=== PATIENT | male | born 1940 | race Caucasian/White ===

== ENCOUNTER 2023-02-21 11:57 | Outpatient (CLI) | payer MEDICARE, OTHER, SELFPAY ==
--- NOTE | ~2023-02-21 | PE_ITS ---
EXAMINATION: PET_PETPSMAST_PT DATE: 02/22/2023 13:49 INDICATION: Malignant neoplasm of the prostate TECHNIQUE: 8.702 mCi of pipflufolastat F-18 (18-F-DCFPyL) was administered i.v. Low dose computed to mography (CT) images were acquired from the base of the brain to the base of the brain to the proxima l thighs for attenuation correction and anatomic localization. Positron emission tomography (PET) yodit ges were acquired in the same distribution beginning 101 minutes after injection. Images including fu sed PET/CT images were reconstructed in axial, coronal, and sagittal planes. Automated exposure contr ol technique was employed. The dose-length product was 638.44mGy-cm. COMPARISON: None FINDINGS: Head/neck: Typical pattern of symmetric physiologic increased activity in the lacrimal, parotid and submandibula r glands as well as along the mucosa of the nasal and oral cavities, the ren-, naso- and hypopharynx, the glottis and esophagus. No pathologically enlarged cervical lymphadenopathy or suspicious foci of increased uptake in the visualized head or neck. Chest: Couple foci of increased paraspinal uptake at the thoracic inlet situated between the first and secon d ribs with maximal SUV of 6.5 on the left and 4.2 on the right which are without radiologic correlat e most likely representing activity in the cervical ganglia. Elevation of the left hemidiaphragm with associated left basilar atelectasis. Additional dependent atelectasis in the bilateral lower lobes. 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 Thoracic aorta is normal in caliber. No pathologically enlarged abdominal or pelvic lymphadenopath y. No other suspicious foci of increased uptake in the thorax. Abdomen/pelvis/proximal thighs: Physiologic renal accumulation and excretion of activity in the kidneys, bladder and along portions o f ureters. There is, cortical scarring along with a few cysts and nonobstructing renal stones at both kidneys. Normal degree and slightly heterogenous pattern of increased uptake throughout the liver an d spleen without radiologic correlate or dominant PSMA avid lesion. The gallbladder, pancreas and sloan ateral adrenal glands are normal. Moderate uptake scattered throughout the bowels with typical duoden al and proximal jejunal predominance and without radiologic correlate, also likely physiologic. Exten sive diverticulosis without adjacent from trace stranding to suggest diverticulitis. Normal appendix. Status post prostatectomy with multiple small metallic densities which could represent surgical clip s and/or brachytherapy seeds. There is intense activity with maximal SUV of 93 centered at approximat kandy 1.5 cm soft tissue density slightly to the right of midline and posterior to the urinary activity at the bladder outlet which is concerning for residual/locally recurrent prostate cancer. No other a bnormal foci of increased uptake or pathologically enlarged lymphadenopathy in the abdomen, pelvis or proximal thighs. Musculoskeletal: S-shaped scoliosis of the thoracic and lumbar spine with moderate to severe spondylosis in the cervic al through the lumbar spine. Tiny bone islands without PSMA activity at the left femoral head. No eldon picious lytic, blastic or PSMA avid bone lesions. IMPRESSION: 1. 1.5 cm nodular soft tissue density with marked PSMA uptake located at the site of a prior prostate ctomy slightly posterior to the urinary activity at the bladder outlet which is consistent with resid ual or locally recurrent prostate cancer. 2. No lesion suspicious for metastatic disease. Reviewed, dictated and finalized at location A. IMPRESSION:
== END 2023-02-21 11:58 | disposition home or self-care (01) ==
LOC: ANHIMG 12:09
PROVIDERS: PCP Family Medicine; Visit Provider Urology
DX: C61 Malignant neoplasm of prostate (principal)
CPT/HCPCS: 78815; A9552; A9595

== ENCOUNTER 2023-03-29 09:32 | Outpatient (CLI) | payer MEDICARE, OTHER, SELFPAY ==
--- NOTE | ~2023-03-29 | NM_ITS ---
EXAMINATION: NM bone scan whole body DATE: 03/29/2023 13:40 INDICATION: Prostate cancer TECHNIQUE: 25.0 mCi Tc-99m HDP was administered intravenously. Delayed whole-body scintigrams were o btained. COMPARISON: [facility] PET dated 02/21/2023 FINDINGS: Likely degenerative joint centered uptake most prominent at the bilateral wrists and carpi and sterno clavicular joints and to lesser degree at the anterosuperior the bilateral sternoclavicular and acrom ioclavicular joints. Mild uptake projecting over the central aspect of both knees likely related to a patellar enthesopathy. Lumbar levoscoliosis with increased uptake associated with prominent degenera tive endplate osteophytes at the left anterior margin of the L5-S1 disc space. Additional likely dege nerative disc centered uptake associated with degenerative endplate changes at the midthoracic spine, likely T8-T9. No other suspicious foci of abnormal bone uptake to suggest metastatic disease. IMPRESSION: 1. Scattered likely degenerative joint and disc centered uptake as detailed above. No lesion suspicio us for metastatic disease. Reviewed, dictated and finalized at location A. IMPRESSION: 1. Scattered likely degenerative joint and disc centered uptake as detailed abo ve. No lesion suspicious for metastatic disease.
== END 2023-03-29 09:33 | disposition home or self-care (01) ==
PROVIDERS: PCP Family Medicine; Visit Provider Radiology Radiation Oncology
DX: C61 Malignant neoplasm of prostate (principal)
CPT/HCPCS: 78306; A9503